=== PATIENT | female | born 1985 | race Caucasian/White ===

== ENCOUNTER 2019-08-05 11:47 | Inpatient (IN) | payer MEDICAID ==
[~2019-08-05] VITALS: Ht 167.6 cm; Wt 106.2 kg
--- NOTE | 2019-08-05 12:18 | NUR ---
CELESTINE GUIDO AT BEDSIDE FOR EVAL.
[2019-08-05] MEDS ORDERED: ACETAMINOPHEN ES 500 MG TABLET PO ONE (12:30)
[2019-08-05] MEDS ORDERED: IV NS 0.9% 1,000 ML BAG IV ONE (12:30)
[2019-08-05] MEDS ORDERED: ONDANSETRON HCL/PF 4 MG/2 ML VIAL IVP ONE (12:30)
[2019-08-05] MEDS ORDERED: ACETAMINOPHEN ES 500 MG TABLET ONE (12:48)
[2019-08-05] MEDS ORDERED: ONDANSETRON HCL/PF 4 MG/2 ML VIAL ONE (12:48)
--- NOTE | 2019-08-05 12:55 | NUR ---
IV LINE STARTED BLOOD DRAWN AND SENT TO LAB.
--- NOTE | 2019-08-05 12:55 | NUR ---
PT TO ER BED 09 C/O DIFFUSE ABDOMINAL PAIN, INTERRMITTENT X 6 DAYS. PT STATES PAIN WORST SINCE YESTERDAY. PLACED ON MONITOR. VSS. AWAITING MD [place].
[2019-08-05 13:03] LABS: BASOPHILS # (AUTO) 0.1 /CMM (0.0-0.2); BASOPHILS % (AUTO) 0.5 % (0.0-2.0); EOSINOPHILS % (AUTO) 0.5 % (0.0-6.0); HEMATOCRIT 43 % (33-45); HEMOGLOBIN 13.2 g/dL (11.5-14.8); LYMPHOCYTES # (AUTO) 2.2 /CMM (0.8-4.8); LYMPHOCYTES % (AUTO) 8.7 % (20.0-44.0); MEAN CORPUSCULAR HGB CONC 31 g/dl (31.0-36.0); MEAN CORPUSCULAR VOLUME 76 fL (82-100); MONOCYTES # (AUTO) 1.8 /CMM (0.1-1.30); MONOCYTES % (AUTO) 7.2 % (2.0-12.0); NEUTROPHILS # (AUTO) 21.1 /CMM (1.8-8.9); NEUTROPHILS % (AUTO) 83.1 % (43.0-81.0); PLATELET COUNT (AUTO) 402 /CMM (150-450); WHITE BLOOD COUNT (AUTO) 25.4 K/uL (4.3-11.0)
[2019-08-05 13:29] LABS: BILIRUBIN,URINE Negative (NEGATIVE); BLOOD, URINE Trace-intact Ery/uL (NEGATIVE); COLOR,URINE Dark (YELLOW); KETONES,URINE Negative (NEGATIVE); LEUKOCYTE ESTERASE ,URINE Negative (NEGATIVE); NITRITE, URINE Negative (NEGATIVE); PROTEIN,URINE 30 mg/dl (NEGATIVE); UGLUCOSE Negative (NEGATIVE); UROBILINOGEN,URINE 0.2 EU/dL (0.2)
[2019-08-05] MEDS ORDERED: PIPERACILLIN /TAZOBACTAM 3.375 G in IV D5W 50 ML IV ONE (13:30)
[2019-08-05] MEDS ORDERED: MORPHINE SULFATE INJ 2 MG/ML DISP.SYRIN IV ONE ×2 (13:30→16:00)
[2019-08-05] MEDS ORDERED: MORPHINE SULFATE INJ 4 MG/ML DISP.SYRIN ONE ×2 (13:31→15:49)
[2019-08-05] MEDS ORDERED: PIPERACILLIN /TAZOBACTAM 3.375 G VIAL IV ONE (13:31)
[2019-08-05 13:32] LABS: APPEARANCE,URINE SLIGHTLY CLOUDY (CLEAR)
[2019-08-05 13:36] LABS: CALCIUM, SERUM 9.6 mg/dL (8.5-10.1); CREATININE 0.9 mg/dL (0.6-1.3)
[2019-08-05 13:39] LABS: BACTERIA,URINE Rare /HPF (None Seen); MUCUS,URINE Few /LPF (None Seen); SQUAMOUS EPITHELIAL CELL,UR Moderate /HPF (None Seen); WBC,URINE 0-2 /HPF (0-3)
[2019-08-05 13:44] LABS: BILIRUBIN,DIRECT 0.1 mg/dL (0.0-0.2); BILIRUBIN,TOTAL 0.8 mg/dL (0.2-1.0)
--- NOTE | 2019-08-05 15:02 | NUR ---
U/S TECH AT BEDSIDE FOR GALLBLADDER ULTRASOUND.
--- NOTE | 2019-08-05 15:39 | NUR ---
Poli Handley [phone] LEFT A MSG.
--- NOTE | 2019-08-05 15:43 | NUR ---
[facility] PAGED
--- NOTE | 2019-08-05 16:10 | NUR ---
BETINA LAI [phone] LEFT [facility]
--- NOTE | 2019-08-05 16:17 | NUR ---
GOT BED 205
--- NOTE | 2019-08-05 16:22 | NUR ---
REPORT GIVEN TO KEITH JACKSON. PT AWAITING TRANSFER TO FLOOR.
--- NOTE | 2019-08-05 16:57 | NUR ---
PATIENT TRANSFERRED TO ROOM 205, NEEDS ATTENDED. KEPT COMFORTABLE.
--- NOTE | 2019-08-05 17:00 | NUR ---
HOT DIP PLATING SUPERVISOR NOTES PATENT ADMITTED FROM ER TELE 34 Y/OLD FEMALE ON Dx OF ACUTE CHOLECYSTITIS. PATENT A/O X4, NO ACUTE RESPIRATORY DISTRESS, UNLABORED BREATHING. WAS COMPLAINING OF PAIN ON RIGHT EPIGASTRIC PAIN 5/10 PER PAIN SCALE. SKIN ASSESSMENT DONE INTACT. V/S TAKEN BP 113/69, P-89,R-18, R-18, T-98.7, O2-97 ROOM AIR. CALL LIGHT WITHIN TO REACH. IV ACCESS ON RIGHT HAND INTACT. HOSPITALIST Dr ZAPATA AWARE OF NEW PATIENT NAD MEDICATION. CONTINUED MONITORING.
[2019-08-05 17:16] VITALS: BP 113/69
[2019-08-05] MEDS: IV D5/0.45 NACL 1,000 ML IV PRN (17:20)
[2019-08-05] MEDS ORDERED: MAG HYDROX/AL HYDROX/SIMETH 30 ML UDC PO PRN (17:30)
[2019-08-05] MEDS ORDERED: MAGNESIUM HYDROXIDE 30 ML UDC PO PRN (17:30)
[2019-08-05] MEDS ORDERED: ZOLPIDEM TARTRATE 5 MG TABLET PO PRN (17:30)
[2019-08-05] MEDS ORDERED: ACETAMINOPHEN 325 MG TABLET PO PRN (17:30)
[2019-08-05] MEDS ORDERED: ONDANSETRON HCL/PF 4 MG/2 ML VIAL IVP PRN (17:30)
[2019-08-05] MEDS ORDERED: Z GUARD REMEDY 2 OZ OINT TP PRN (17:30)
[2019-08-05] MEDS ORDERED: HYDROCODONE/APAP 5/325MG 1 EACH TABLET PO PRN (17:30)
[2019-08-05 18:00] VITALS: BP 113/69
--- NOTE | 2019-08-05 18:22 | NUR ---
RN NOTES ADMINISTERED NARCO 5/325 MG PO PRN FOR RIGHT EPIGASTRIC PAIN 6/10 PER PAIN SCALE, ALSO PAIN RADIATING LOWER BACK. V/S TAKEN BP 113/78, P-78, R-18. PATIENT NPO. CALL LIGHT WITHIN TO REACH. ENDORSED ONCOMING NURSE FOLLOW PLAN OF CARE.
--- NOTE | 2019-08-05 19:45 | NUR ---
RN OPENING NOTES RECEIVED REPORT FROM DAYSMTFT RNFRANCISCO. FOUND PT AWAKE, RESTING IN BED. NO S/S OF ACUTE DISTRESS OR SOB NOTED. Pt IS A/OX4, VERBAL, ABLE TO MAKE NEEDS KNOWN. RESPIRATIONS EVEN AND UNLABORED WITH EQUAL CHEST RISE AND FALL. IV ACCESS ON RHAND #20G, IVF D51/2 NS @125ML/HR INFUSING WELL. SAFETY MEASURES IN PLACE. BED LOW, LOCKED, HOB ELEVATED, SIDE RAILS UP, CALL LIGHT AND BEDSIDE TABLE WITHIN REACH. WILL CONTINUE TO MONITOR Pt's CONDITION AND SAFETY THROUGHOUT THE NIGHT.
[2019-08-05 20:00] VITALS: BP 106/65
[2019-08-05 20:30] VITALS: BP 106/65
[2019-08-05] MEDS: PIPERACILLIN /TAZOBACTAM 3.375 G in IV D5W 100 ML IV SCH (21:22)
[2019-08-05] MEDS: MORPHINE SULFATE INJ 2 MG/ML DISP.SYRIN IV PRN (21:27)
[2019-08-06] MEDS: MORPHINE SULFATE INJ 2 MG/ML DISP.SYRIN IV PRN ×4 (02:57→23:47)
[2019-08-06] MEDS: PIPERACILLIN /TAZOBACTAM 3.375 G in IV D5W 100 ML IV SCH ×3 (05:20→21:06)
[2019-08-06 06:30] LABS: BASOPHILS # (AUTO) 0.1 /CMM (0.0-0.2); BASOPHILS % (AUTO) 0.6 % (0.0-2.0); EOSINOPHILS % (AUTO) 1.4 % (0.0-6.0); HEMATOCRIT 34 % (33-45); HEMOGLOBIN 10.8 g/dL (11.5-14.8); LYMPHOCYTES # (AUTO) 2.5 /CMM (0.8-4.8); LYMPHOCYTES % (AUTO) 17.6 % (20.0-44.0); MEAN CORPUSCULAR HGB CONC 32 g/dl (31.0-36.0); MEAN CORPUSCULAR VOLUME 75 fL (82-100); MONOCYTES # (AUTO) 1.5 /CMM (0.1-1.30); MONOCYTES % (AUTO) 10.5 % (2.0-12.0); NEUTROPHILS # (AUTO) 10.1 /CMM (1.8-8.9); NEUTROPHILS % (AUTO) 69.9 % (43.0-81.0); PLATELET COUNT (AUTO) 307 /CMM (150-450); WHITE BLOOD COUNT (AUTO) 14.5 K/uL (4.3-11.0)
--- NOTE | 2019-08-06 06:50 | NUR ---
RN CLOSING NOTES NO SIGNIFICANT CHANGES IN Pt's CONDITION. Pt REMAINS STABLE PER BASELINE. NO S/S OF ACUTE DISTRESS OR SOB NOTED DURING THE NIGHT. Pt IS RESTING IN BED. SAFETY MEASURES IN PLACE. BED ALARM ON. ALL NEEDS MET AND ATTENDED TO. WILL ENDORSE TO DAYSHIFT RN FOR Pt's FAVIO.
[2019-08-06 07:02] LABS: CALCIUM, SERUM 8.3 mg/dL (8.5-10.1); MAGNESIUM 2.2 mg/dL (1.8-2.4); PHOSPHORUS 3.7 mg/dL (2.5-4.9); POTASSIUM 3.8 mmol/L (3.5-5.1)
--- NOTE | 2019-08-06 07:35 | NUR ---
MS/RN - Assessment Patient in bed awake, A/O X 4, afebrile, c/o of severe abdominal pain CA 8/10, medicated with Morphine 4 mg IVP as ordered, denies N/V, currently on NPO, IVF D5 1/2 Ns at 125 ml/hr infusing well on the right hand with no complications. Labs reviewed, WBC trending down, on IV Zosyn 3.375 Gm Q8H. Skin is intact. Patient is ambulatory with steady gait. Pending surgical consult with Dr. Handley. All needs attended. Will continue with current medical management.
[2019-08-06 07:59] VITALS: BP 100/63
[2019-08-06] MEDS: PANTOPRAZOLE 40 MG VIAL IV SCH (08:09)
[2019-08-06] MEDS: IV D5/0.45 NACL 1,000 ML IV PRN (08:11)
--- NOTE | 2019-08-06 12:00 | NUR ---
MS/RN - Telephone order Spoke with PRINCE Alvarado (Surgery) with order to do stat HIDA scan. Consent signed by the patient. Called Anthony (nuclear med) to schedule the patient.
--- NOTE | 2019-08-06 13:00 | NUR ---
MS/RN - Notes Patient taken to HIDA scan in no acute distress.
--- NOTE | 2019-08-06 14:30 | NUR ---
MS/RN - Notes Patient returned to room, appears comfortable, remain NPO, resumed IVF. Per nuclear med, patient will be picked up at 17:00 for the second part of the test.
[2019-08-06 16:00] VITALS: BP 116/62
--- NOTE | 2019-08-06 17:00 | NUR ---
MS/RN - Surgery consult Patient was seen and examined by PRINCE Alvarado with lab orders.
--- NOTE | 2019-08-06 18:59 | NUR ---
MS/RN - End of shift summary Patient in no acute distress, abdominal pain managed with Morphine 4 mg IVP, remain NPO, IVF infusing well on the right hand. HIDA scan showed abnormal study with no gallbladder uptake, this may indicate cystic duct obstruction, relayed result to PRINCE Alvarado. All needs attended. Will endorse to night RN accordingly.
--- NOTE | 2019-08-06 19:29 | NUR ---
RN OPENING NOTES RECEIVED REPORT FROM WEIILSARAN RNTIFFANIE. FOUND PT AWAKE, RESTING IN BED. NO S/S OF ACUTE DISTRESS OR SOB NOTED. Pt IS A/OX4, VERBAL, ABLE TO MAKE NEEDS KNOWN. RESPIRATIONS EVEN AND UNLABORED WITH EQUAL CHEST RISE AND FALL. IV ACCESS ON RHAND #20G, IVF D51/2 NS @125ML/HR INFUSING WELL. SAFETY MEASURES IN PLACE. BED LOW, LOCKED, HOB ELEVATED, SIDE RAILS UP, CALL LIGHT AND BEDSIDE TABLE WITHIN REACH. PER REPORT Pt IS SCHEDULED FOR LAP CHOLECYSTECTOMY TOMORROW AM. WILL BE NPO AFTER MN. WILL CONTINUE TO MONITOR Pt's CONDITION AND SAFETY THROUGHOUT THE NIGHT.
--- NOTE | 2019-08-06 20:26 | NUR ---
RN NOTES PER KIARRA JIN GI CHIP LOFT WORKER: GET CONSENT FOR LAPAROSCOPIC CHLECYSTECTOMY AND POSSIBLE EXPLORATORY LAPAROTOMY UNDER GENERAL ANESTHESIA AND NPO AFTER MN. SX SCHEDULED FOR 08/07/19 @1100. LABS FOR TOMORROW AM: CBC, CMP, PT 7 & INR. WILL CARRY OUT ORDERS.
[2019-08-06 21:00] VITALS: BP 123/81
[2019-08-07] VITALS (10 sets, daily range): BP systolic 98–118; BP diastolic 46–79
[2019-08-07] MEDS: PIPERACILLIN /TAZOBACTAM 3.375 G in IV D5W 100 ML IV SCH ×3 (05:35→21:36)
[2019-08-07] MEDS: MORPHINE SULFATE INJ 2 MG/ML DISP.SYRIN IV PRN (05:43)
[2019-08-07 05:51] LABS: BASOPHILS # (AUTO) 0.1 /CMM (0.0-0.2); BASOPHILS % (AUTO) 1.1 % (0.0-2.0); EOSINOPHILS % (AUTO) 3.3 % (0.0-6.0); HEMATOCRIT 34 % (33-45); HEMOGLOBIN 10.9 g/dL (11.5-14.8); LYMPHOCYTES # (AUTO) 2.7 /CMM (0.8-4.8); LYMPHOCYTES % (AUTO) 26.8 % (20.0-44.0); MEAN CORPUSCULAR HGB CONC 32 g/dl (31.0-36.0); MEAN CORPUSCULAR VOLUME 76 fL (82-100); MONOCYTES # (AUTO) 1.1 /CMM (0.1-1.30); MONOCYTES % (AUTO) 11.1 % (2.0-12.0); NEUTROPHILS # (AUTO) 5.9 /CMM (1.8-8.9); NEUTROPHILS % (AUTO) 57.7 % (43.0-81.0); PLATELET COUNT (AUTO) 285 /CMM (150-450); WHITE BLOOD COUNT (AUTO) 10.2 K/uL (4.3-11.0)
--- NOTE | 2019-08-07 06:35 | NUR ---
RN CLOSING NOTES NO SIGNIFICANT CHANGES IN Pt's CONDITION. Pt REMAINS STABLE PER BASELINE. NO S/S OF ACUTE DISTRESS OR SOB NOTED DURING THE NIGHT. Pt IS RESTING IN BED. SAFETY MEASURES IN PLACE. HAS BEEN NPO. Pt SCHEDULED FOR LAP SUSHILA @1100, ALL CONSENTS SIGNED, PLACED IN CHART. ALL NEEDS MET AND ATTENDED TO. WILL ENDORSE TO DAYSHIFT RN FOR Pt's FAVIO.
[2019-08-07 07:00] LABS: ALBUMIN 2.5 g/dL (3.4-5.0); BILIRUBIN,TOTAL 0.6 mg/dL (0.2-1.0); CALCIUM, SERUM 8.2 mg/dL (8.5-10.1); CREATININE 0.9 mg/dL (0.6-1.3); MAGNESIUM 2.3 mg/dL (1.8-2.4); PHOSPHORUS 3.3 mg/dL (2.5-4.9); POTASSIUM 3.4 mmol/L (3.5-5.1); TOTAL PROTEIN, SERUM 6.5 g/dL (6.4-8.2)
[2019-08-07] MEDS: IV D5/0.45 NACL 1,000 ML IV PRN (07:07)
--- NOTE | 2019-08-07 07:20 | NUR ---
MS/RN - Assessment Patient in bed awake, A/O X 4, afebrile, no complaints overnight, denies N/V, currently on NPO for surgery today at 11:00 for Lap Cholecystectomy possible exploratory laparotomy under general anesthesia. All consents signed by the patient. IVF D5 1/2 NS at 125 ml/hr infusing well on the right hand with no complications. Labs reviewed, WBC down to 10.2, on IV Zosyn 3.375 Gm Q8H. All needs attended. Will continue with current medical management.
[2019-08-07] MEDS: PANTOPRAZOLE 40 MG VIAL IV SCH (08:00)
[2019-08-07] MEDS ORDERED: HYDROMORPHONE INJ 2 MG/ML DISP.SYRIN ONE ×2 (09:44→13:09)
[2019-08-07] MEDS ORDERED: MIDAZOLAM HCL 2 MG/2ML VIAL ONE (09:44)
[2019-08-07] MEDS: POTASSIUM CL. PREMIX PERIPHER. 50 ML IV SCH ×2 (09:51→11:49)
[2019-08-07] MEDS ORDERED: CELLULOSE,OXIDIZED 1 PKT EACH MC ONE (12:06)
[2019-08-07] MEDS ORDERED: BUPIVACAINE 0.5 % PF 150 MG/30 ML VIAL ONE (12:30)
[2019-08-07] MEDS ORDERED: LIDOCAINE MPF 1%-EPI 1:200,000 30 ML VIAL IJ ONE (12:30)
[2019-08-07] MEDS ORDERED: LIDOCAINE 1%-EPI 1:100,000 20 ML VIAL ONE (12:30)
[2019-08-07] MEDS ORDERED: BACITRACIN ZINC OINT (15 GM) 15 GM TUBE TP ONE (12:37)
[2019-08-07] MEDS ORDERED: IV LR 1000 ML 1,000 ML IV PRN (14:30)
[2019-08-07] MEDS ORDERED: HYDROMORPHONE 1 MG/1 ML DISP.SYRIN IV PRN (14:30)
--- NOTE | 2019-08-07 14:45 | NUR ---
MS/RN - Notes Patient came back from surgery s/p lap cholecystectomy with 3 lap sites, dressing clean, dry and intact. Patient is awake, A/O x 4, stable on room air, abdomen soft and non-distended, denies pain, vitals monitored per protocol, post-op orders were carried out. Will continue to monitor closely.
--- NOTE | 2019-08-07 18:49 | NUR ---
MS/RN - End of shift summary Patient appears comfortable, afebrile, denies n/v, bowel sounds present, abdomen not distended, able to tolerate clear liquids today, may advance diet tomorrow. Patient still not able to pass gas and was encouraged to ambulate frequently. Patient may be discharged home tomorrow if stable overnight and WBC normal per Dr. Handley. Will continue with current plan of care.
--- NOTE | 2019-08-07 19:05 | NUR ---
MS RN: RECEIVED PATIENT Patient in bed, awake. A/O x4 tolerating room air. Abdomen lap site x4 with gauze clean and dry. Feels OK, some pressure like pain and tenderness per patient. Denies nausea, no vomiting. Maintained safety.
[2019-08-07] MEDS: HYDROCODONE/APAP 10/325MG 1 EA TABLET PO PRN (19:41)
--- NOTE | 2019-08-07 19:44 | NUR ---
MS RN: ABDOMINAL PAIN Patient c/o pressure pain in her abdomen 5/10, denies nausea, no vomiting. abd lap site no s/s of bleeding. PRN [place] given, will reassess pain.
--- NOTE | 2019-08-07 20:41 | NUR ---
MS RN: PAIN REASSESSMENT Patient in bed, awake, reports pain scale 3/10 after PRN [place]. Fall precaution maintained.
[2019-08-08] MEDS: PIPERACILLIN /TAZOBACTAM 3.375 G in IV D5W 100 ML IV SCH ×2 (05:12→13:25)
[2019-08-08] MEDS: HYDROCODONE/APAP 10/325MG 1 EA TABLET PO PRN ×2 (05:17→14:34)
--- NOTE | 2019-08-08 05:17 | NUR ---
MS RN: ABDOMINAL PAIN Patient c/o throbbing pain in her abdomen 11/21, denies nausea, no vomiting. abd lap site no s/s of bleeding. PRN [place] given, will reassess pain.
--- NOTE | 2019-08-08 06:17 | NUR ---
MS RN: PAIN REASSESSMENT Patient in bed, awake, reports pain scale 3/10 after PRN [place]. Fall precaution maintained.
--- NOTE | 2019-08-08 06:28 | NUR ---
MS RN: END OF SHIFT REPORT Patient in bed, stable on room air. Abdomen lap site x4 gauze clean and dry, reports not passing gas, pain managed with PRN [place]. Denies nausea, no vomiting. Encouraged ambulation. IV antibiotic as scheduled, afebrile overnight.
[2019-08-08 06:31] LABS: BASOPHILS % (AUTO) 0.3 % (0.0-2.0); EOSINOPHILS % (AUTO) 0.2 % (0.0-6.0); HEMATOCRIT 35 % (33-45); HEMOGLOBIN 10.9 g/dL (11.5-14.8); LYMPHOCYTES # (AUTO) 2.4 /CMM (0.8-4.8); LYMPHOCYTES % (AUTO) 16.9 % (20.0-44.0); MEAN CORPUSCULAR HGB CONC 31 g/dl (31.0-36.0); MEAN CORPUSCULAR VOLUME 76 fL (82-100); MONOCYTES % (AUTO) 7.1 % (2.0-12.0); NEUTROPHILS # (AUTO) 10.7 /CMM (1.8-8.9); NEUTROPHILS % (AUTO) 75.5 % (43.0-81.0); PLATELET COUNT (AUTO) 389 /CMM (150-450); RED BLOOD CELL COUNT(AUTO) 4.58 MIL/uL (4.0-5.2); WHITE BLOOD COUNT (AUTO) 14.1 K/uL (4.3-11.0)
[2019-08-08 06:52] LABS: CALCIUM, SERUM 8.8 mg/dL (8.5-10.1); MAGNESIUM 2.4 mg/dL (1.8-2.4); POTASSIUM 4.2 mmol/L (3.5-5.1)
[2019-08-08] MEDS: PANTOPRAZOLE 40 MG TABLET.DR PO SCH (07:19)
--- NOTE | 2019-08-08 07:47 | NUR ---
MS RN - OPENING ASSESSMENT Received patient from client service and consulting manager nurse, in bed, conscious, awake, afebrile, with IVF LR at 125ml/hr at right hand infusing well. Patient is on a soft diet. Instructed patient to use pillow on surgical site when coughing to prevent pain on the area. Patient verbalized with a pain scale of 3.
[2019-08-08 08:00] VITALS: BP 123/77
[2019-08-08 16:00] VITALS: BP 118/71
--- NOTE | 2019-08-08 18:10 | NUR ---
MS/RN - Notes Patient able to tolerate regular diet, denies n/v, no c/o abdominal pain, abdomen soft, non-distended, positive bowel sounds, able to pass gas but no BM yet. Patient remain afebrile, completed IV antibiotic course. Anticipate discharge home tomorrow if WBC is normal.
--- NOTE | 2019-08-08 18:39 | NUR ---
MS RN - CLOSING NOTES Patient endorsed to cage shift manager nurse in bed, afebrile, ambulatory, conscious and awake. With IV line access on right hand intact. Patient was given prn pain med Narco 10-325 tab at 14:34. With pain scale of 5. Patient was cooperative and attentive the whole shift.
[2019-08-08 19:30] VITALS: BP 112/74
--- NOTE | 2019-08-08 19:45 | NUR ---
MS RN NOTES PATIENT IN BED, AWAKE, ALERT AND ORIENTED X 4. BREATHING EVEN AND UNLABORED ON ROOM AIR. SHOWS NO SIGNS OF ACUTE RESPIRATORY DISTRESS, NO ACUTE PAIN. IV ON R HAND 20G SL. SHOWS NO SIGNS OF INFILTRATION, NO REDNESS. SAFETY PRECAUTIONS IN PLACE. BED IN LOWEST POSITION, LOCKED, AND CALL LIGHT KEPT WITHIN REACH. WILL CONTINUE TO MONITOR.
[2019-08-08 20:00] VITALS: BP 112/74
[2019-08-09 06:23] LABS: BASOPHILS # (AUTO) 0.1 /CMM (0.0-0.2); BASOPHILS % (AUTO) 0.8 % (0.0-2.0); EOSINOPHILS % (AUTO) 2.5 % (0.0-6.0); HEMATOCRIT 34 % (33-45); HEMOGLOBIN 10.7 g/dL (11.5-14.8); LYMPHOCYTES # (AUTO) 4.2 /CMM (0.8-4.8); LYMPHOCYTES % (AUTO) 38.8 % (20.0-44.0); MEAN CORPUSCULAR HGB CONC 32 g/dl (31.0-36.0); MEAN CORPUSCULAR VOLUME 76 fL (82-100); MONOCYTES # (AUTO) 0.8 /CMM (0.1-1.30); MONOCYTES % (AUTO) 7.8 % (2.0-12.0); NEUTROPHILS # (AUTO) 5.4 /CMM (1.8-8.9); NEUTROPHILS % (AUTO) 50.1 % (43.0-81.0); PLATELET COUNT (AUTO) 362 /CMM (150-450); RED BLOOD CELL COUNT(AUTO) 4.42 MIL/uL (4.0-5.2); WHITE BLOOD COUNT (AUTO) 10.8 K/uL (4.3-11.0)
--- NOTE | 2019-08-09 06:36 | NUR ---
MS RN NOTES PATIENT IN BED, ASLEEP, ALERT AND ORIENTED X 4. BREATHING EVEN AND UNLABORED ON ROOM AIR. SHOWS NO SIGNS OF ACUTE RESPIRATORY DISTRESS, NO ACUTE PAIN. IV ON R HAND 20G SL. SHOWS NO SIGNS OF INFILTRATION, NO REDNESS. ITS CLEAN DRY AND INTACT. ALL DUE MEDICATIONS GIVEN. SAFETY PRECAUTIONS IN PLACE. BED IN LOWEST POSITION, LOCKED, AND CALL LIGHT KEPT WITHIN REACH. WILL ENDORSE TO ONCOMING NURSE.
[2019-08-09 07:04] LABS: CALCIUM, SERUM 8.3 mg/dL (8.5-10.1); CREATININE 0.9 mg/dL (0.6-1.3); MAGNESIUM 2.2 mg/dL (1.8-2.4); PHOSPHORUS 3.2 mg/dL (2.5-4.9); POTASSIUM 3.6 mmol/L (3.5-5.1)
[2019-08-09] MEDS: PANTOPRAZOLE 40 MG TABLET.DR PO SCH (07:37)
--- NOTE | 2019-08-09 07:57 | NUR ---
MS RN OPENING NOTES RECEIVED PATIENT IN BED,AWAKE, A/O X4. PATIENT ON ROOM AIR BREATHING EVEN AND UNLABORED. NO S/S OF SOB AT THIS TIME. IV ON R HAND 20G INTACT AND FLUSHING WELL; SHOWS NO SIGNS OF INFILTRATION, NO REDNESS. PATIENT HAS MILD PAIN. SAFETY PRECAUTIONS IN PLACE; BED IN LOW POSITION AND LOCKED, RAILS UP X2, CALL LIGHT WITHIN REACH. WILL CONTINUE TO MONITOR PATIENT.
[2019-08-09 08:00] VITALS: BP 111/75
--- NOTE | 2019-08-09 12:42 | NUR ---
MS CRIMINAL INVESTIGATOR CUSTOMS NOTES PATIENT DISCHARGE HOME IN MEDICALLY STABLE CONDITION. PATIENT A/O X4, VITAL SIGNS WNL. PATIENT BREATHING ON ROOM AIR IN NO ACUTE DISTRESS AND NO SOB PRESENT. ALL DISCHARGE PAPERWORK PROVIDED. PATIENT TEACHING DONE. PATIENT VERBALIZED UNDERSTANDING. PERSONAL ITEMS ACCOUNTED FOR AND VALUABLE FORM SIGNED. BEFORE LEAVING THE UNIT PATIENT WRIST ID AND IV ACCESS WERE REMOVED. PATIENT WAS ACCOMPANIED DOWNSTAIRS BY THE FLAVOR ROOM WORKER VIA WHEELCHAIR. PATIENT LEFT IN PRIVATE CAR.
== END 2019-08-09 12:40 | disposition home or self-care (01) | DRG 710 ==
LOC: ER 11:54 → MEDSG2 16:38 → MED 08-08 11:51
PROVIDERS: ADMIT Student in an Organized Health Care Education/Training Program; ATTEND Student in an Organized Health Care Education/Training Program
PROC: 0FT44ZZ Resection of Gallbladder, Percutaneous Endoscopic Approach (ICD-10-PCS; principal; 2019-08-07)
PROC: 0DNU4ZZ Release Omentum, Percutaneous Endoscopic Approach (ICD-10-PCS; principal; 2019-08-07)
DX: A41.9 Sepsis, unspecified organism (principal); E44.0 Moderate protein-calorie malnutrition; K80.13 Calculus of gallbladder with acute and chronic cholecystitis with obstruction; E66.9 Obesity, unspecified; K82.8 Other specified diseases of gallbladder; K82.A1 Gangrene of gallbladder in cholecystitis; K66.0 Peritoneal adhesions (postprocedural) (postinfection); E87.6 Hypokalemia; Z68.37 Body mass index [BMI] 37.0-37.9, adult
CPT/HCPCS: 36415; 71045-TC; 76705-TC; 78226; 80048-TC; 80053-TC; 80061-TC; 80076-TC; 81000-TC; 83605-TC; 83690-TC; 83735-TC; 84100-TC; 84703-TC; 85025-TC; 85610-TC; 85730-TC; 87040-TC; 87081-TC; 88304-TC; A4216; A9537; C9113; G0378; J0330; J1100; J1170; J1885; J2250; J2270; J2405; J2543; J2704; J2710; J2765; J3480; J3490; J7030; J7060; J7120